=== PATIENT | male | born 1975 | race Caucasian/White ===

== ENCOUNTER → 2018-11-09 | Emergency (ER) | payer MEDICAID, OTHER ==
[~2018-11-09] VITALS: Ht 170.2 cm; Wt 86.4 kg
[~2018-11-09] MED LIST: AMLO-511 PO; BENZ1TAB10 PO; DIPH25 PO; HALO5TAB2 PO; IBUPROFEN 800 MG TABLET PO ONE; LISI-662 PO; QUET200T PO; RISP2 PO; TAMS0.4C32 PO
[2018-11-09 12:22] VITALS: BP 118/79
== END | disposition home or self-care (01) ==
LOC: EMS 10:00
DX: K04.7 Periapical abscess without sinus (principal); R50.9 Fever, unspecified; F20.9 Schizophrenia, unspecified; F17.210 Nicotine dependence, cigarettes, uncomplicated; Z88.8 Allergy status to other drugs, medicaments and biological substances; Z91.030 Bee allergy status; Z79.899 Other long term (current) drug therapy